=== PATIENT | female | born 1970 | race Caucasian/White ===

== ENCOUNTER → 2017-03-29 | Outpatient (CLI) | payer MEDICAID ==
[~2017-03-29] MED LIST: AMOXICILLIN AND1 TA2 PO; BACTRIM 400 MG-1 TAB PO; BACTRIM DS 8001 TA1 PO; CELEXA40 M1 PO; CIPRO 500MG TA500 MG PO; CIPRO500 MG PO; LORTAB 5/500 501 TAB OR; LORTAB 5/500 501 TAB PO; MEDROL 4MG. DOSE4 MG PO; NAPROXEN250 MG PO; PRILOSEC20 M1 PO; PYRIDIUM 200MG200 MG PO; ROBAXIN100 MG/ML PO; VICODIN 5/500 T1 TAB PO; VITAMIN D31000 IU PO; ZANTAC 150150 MG PO; ZITHROMAX Z PA250 MG PO
--- NOTE | 2017-03-30 12:50 | RADIOLOGY REPORT PS360 ---
US PELVIS-TRANSVAGINAL ONLY COMPARISON: None HISTORY: Dysfunctional uterine bleeding, heavy cycles history bilateral tubal ligation TECHNIQUE: Endovaginal scanning FINDINGS: The uterus is normal size and slightly retroverted. There is a somewhat coarsened heterogenic appearance to the uterine myometrium raising possibility of adenomyosis which could be a cause of dysfunctional uterine bleeding. The endometrial echo is normal. The right ovary is normal in size with normal appearance, left ovary is normal in size and shows a dominant and likely functional cyst measuring 2.5 x 1.7 cm. There is no cul-de-sac fluid. IMPRESSION: Somewhat heterogenic appearing uterine myometrium raising possibility of adenomyosis and suggest clinical correlation
== END ==
LOC: RAD 13:00
DX: R10.32 Left lower quadrant pain (principal)

== ENCOUNTER 2017-08-25 10:36 | Emergency (ER) | payer MEDICAID ==
[~2017-08-25] VITALS: Ht 175.3 cm; Wt 73.5 kg
--- OUTSIDE RECORDS SUMMARY | 2017-08-25 10:42 | External Medical Summary Rpt | CCD ---
Author Author , CONSTANCE NOLASCO Address Unknown Phone Care Team Providers Care Instructor Private Name Role Phone [facility] Unavailable Unavailable INC, [facility] Un[facility] KATHLEEN DONALD, ALBION DONALD Unavailable Unavailable [facility], Unavailable Unavailable [facility] Unavailable Unavailable [facility] April Young MD, Unavailable Unavailable April Young MD [facility] GIRMA CARRILLO, GIRMA Unavailable Unavailable [facility] Unavailable Unavailable [facility] SCIFRES, SCIFRES Unavailable Unavailable [facility], Unavailable Unavailable [facility] Unavailable [facility]available DEPT [facility], [facility] DE[facility] Purpose Continuity of Care Document - 04-17-2013 through 2016 Problems Code Diagnosis DOS Provider Status H6593 UNSPECIFIED 06-27-2017 [facility] PHYSICIANS NONSUPPRATI GROUP VE OTITIS MEDIA BILATERAL J209 ACUTE 06-27-2017 [facility] BRONCHITIS PHYSICIANS UNSPECIFIED GROUP N920 EXCESS & 05-28-2017 [facility] FREQUENT PHYSICIANS MENSTRUATIO GROUP N W/REGULAR CYCLE Z09 ENC F/U 05-28-2017 [facility] EXAM AFTR PHYSICIANS CMPL TX OTH GROUP THAN MALIG NEOPLSM N946 DYSMENORRHE 05-09-2017 [facility] UNSPECIFIED INC 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 04-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 PHYSICIANS ANEMIA SEC GROUP TO BLOOD LOSS CHRONIC N944 PRIMARY 04-16-2017 [facility] DYSMENORRHE PHYSICIANS A GROUP N938 OTHER SPEC 03-29-2017 [facility] VAGINAL BLEEDING R1032 LEFT LOWER 03-29-2017 [facility] PAIN INC N926 IRREGULAR 03-19-2017 [facility] MENSTRUATIO PHYSICIANS N GROUP UNSPECIFIED N951 MENOPAUSAL 03-19-2017 [facility]EM[facility] PHYSICIANS CLIMACTERIC GROUP STATES H524 PRESBYOPIA 02-28-2017 [facility] R635 ABNORMAL 12-03-2016 [facility] H6693 OTITIS 10-22-2016 [facility] UNSPECIFIED INC BILATERAL B9689 OTH SPEC 09-05-2016 [facility] AGNT CAUSE DZ CLASSIFIED ELSW R102 PELVIC AND 09-05-2016 [facility] PER[facility] PAIN [id number] ENCOUNTER 09-05-2016 [facility] GENERAL RTN W/O ABNORMAL FIND H6592 UNSPECIFIED 07-17-2016 [facility] PHYSICIANS NONSUPPURAT GROUP SHAYY OTITIS MEDIA LT EAR M795 RESIDUAL 07-17-2016 [facility] FOREIGN PHYSICIANS BODY IN GROUP SOFT TISSUE R232 FLUSHING 07-17-2016 [facility] J40 BRONCHITIS 02-15-2016 [facility] NOT PHYSICIANS SPECIFIED GROUP ACUTE OR CHRONIC K219 GASTRO-ESOP 01-31-2016 [facility] H REFLUX PHYSICIANS DISEASE GROUP WITHOUT ESOPHAGITIS R309 PAINFUL 01-31-2016 [facility] MICTURITION PHYSICIANS GROUP UNSPECIFIED H6690 OTITIS 07-12-2015 [facility] MEDIA PHYSICIANS UNSPECIFIED GROUP UNSPECIFIED EAR R591 GENERALIZED 07-12-2015 [facility] ENLARGED PHYSICIANS LYMPH NODES GROUP 3674 PRESBYOPIA 02-08-2015 KATHLEEN DONALD V2540 UNSPECIFIED 01-25-2015 [facility] CONTRACEPTI [facility] DEPT VE MACK SURVEILLANC E V2689 OTHER 01-25-2015 [facility] SPECIFIED DISTRICT PROCREATIVE [facility] DEPT MANAGEMENT MACK 8472 LUMBAR 10-19-2014 [facility] 33814 UNSPECIFIED 10-07-2014 [facility] PERFORATION OGY ASS[facility] OF TYMPANIC MEMBRANE 3829 UNSPECIFIED 09-07-2014 [facility] OTITIS MEDIA 3849 UNSPECIFIED 08-21-2014 [facility] DISORDER EAST OF TYMPANIC MEMBRANE 5990 URINARY 08-21-2014 [facility] TRACT EAST INFECTION SITE NOT SPECIFIED V145 PERSONAL 08-21-2014 [facility] HISTORY OF EAST ALLERGY TO NARCOTIC AGENT 496 496 CHR 04-18-2013 [place] [facility]AY [facility] N[facility] 530.81 530.81 04-18-2013 [place] ESOPHAGEAL [facility] REFLUX [facility] 599.0 599.0 URIN 04-18-2013 [facility] NOS 724.2 724.2 04-18-2013 [facility] Allergies, Adverse Reactions, Alerts Type Drug Allergy Adverse Reaction to Substance Substance Reaction Severity Codeine Unknown Unknown Medications Na ND Rx Da Fi Fi Am Da Di Ph RX Ph St me C No te ll ll ou ys ag ar # ys at rm s nt no ma ic us Or Da si cy ia de te s n re d CI 13 10 11 30 30 00 EA Ac TA 66 -1 -[address] ti LO 80 7- 7- 00 00 SI ve NE 01 20 20 50 DE AM 10 17 17 56 5 18 PH HB AR R MA 40 CY MG OF CY TA NT BL HI ET AN A IN C QU 16 10 11 30 30 00 EA Ac ET 71 -1 -[address] ti IA 40 7- 7- 00 00 SI ve PI 45 20 20 50 DE NE 30 17 17 56 1 19 PH FU AR MA MA RA CY TE OF 50 CY NT MG HI AN TA A B IN C CL 00 10 11 30 30 00 EA Ac ON 22 -1 -[address] ti ID 82 7- 7- 00 00 SI ve IN 12 20 20 50 DE E 85 17 17 56 HC 0 20 PH L AR 0. MA 2 CY MG OF TA CY BL NT ET HI AN A IN C OM 62 10 11 30 30 00 EA Ac EP 17 -1 -[address] ti RA 50 8- 7- 00 00 SI ve ZO 13 20 20 50 DE LE 64 17 [address] AR MA 40 CY MG OF CY CA NT PS HI UL AN E A IN C AZ 64 10 11 6. 5 00 EA Ac IT 67 -0 -[address] ti HR 90 5- 0- 0 00 SI ve OM 96 20 20 50 DE YC 10 17 17 43 IN 5 66 PH AR 25 MA 0 CY MG OF TA CY BL NT ET HI AN A IN C BE 67 10 11 6. 3 00 EA Ac NZ 87 -0 -[address] ti ON 70 5- 0- 0 00 SI ve AT 57 20 20 50 DE AT 30 17 17 43 E 5 67 PH 10 AR 0 MA MG CY CA OF PS CY UL NT E HI AN A IN C OM 62 09 10 30 30 00 EA Ac EP 17 -2 -[address] ti RA 50 1- 7- 00 00 SI ve ZO 13 20 20 50 DE LE 64 17 [address] AR MA 40 CY MG OF CY CA NT PS HI UL AN E A IN C CI 13 09 07 22 30 00 EA Ac TA 66 -1 -[address] ti LO 80 1- 3- 00 00 SI ve NE 01 20 20 49 DE AM 10 17 17 42 5 66 PH HB AR R MA 40 CY MG OF CY TA NT BL HI ET AN A IN C CL 00 09 07 22 30 00 EA Ac ON - -[address] ti ID 82 1- 3- 00 00 SI ve IN 12 20 20 49 DE E 85 17 17 42 HC 0 68 PH L AR 0. MA 2 CY MG OF TA CY BL NT ET HI AN A IN C QU 16 06 02 30 30 00 EA Ac ET 71 -1 -[address] ti IA 40 1- 3- 00 00 SI ve PI 45 20 20 49 DE NE 30 17 17 42 1 67 PH FU AR MA MA RA CY TE OF 50 CY NT MG HI AN TA A B IN C OM 62 08 06 22 30 00 EA Ac EP 17 -2 -[address] ti RA 50 2- 2- 00 00 SI ve ZO 13 20 20 49 DE LE 64 17 [address] AR MA 40 CY MG OF CY CA NT PS HI UL AN E A IN C HY 13 08 09 [address] 10 -2 -2 .0 00 IN ti OC 70 1- 2- 00 00 IC ve OD 02 20 20 43 ON 00 17 17 99 PH -A 5 73 AR CE MA TA CY MO NO PH 7. 5- 32 5 CL 00 08 30 30 00 EA Ac ON - -[address] ti ID 82 4- 5- 00 00 SI ve IN 12 20 20 49 DE E 85 17 17 42 HC 0 68 PH L AR 0. MA 2 CY MG OF TA CY BL NT ET HI AN A IN C QU 16 08 06 22 30 00 EA Ac ET 71 -1 -[address] ti IA 40 4- 5- 00 00 SI ve PI 45 20 20 49 DE NE 30 17 17 42 1 67 PH FU AR MA MA RA CY TE OF 50 CY NT MG HI AN TA A B IN C CI 13 08 30 30 00 EA Ac TA 66 -1 -[address] ti LO 80 4- 5- 00 00 SI ve NE 01 20 20 49 DE AM 10 17 17 42 5 66 PH HB AR R MA 40 CY MG OF CY TA NT BL HI ET AN A IN C OM 62 07 08 30 30 00 EA Ac EP 17 -2 -[address] ti RA 50 4- 5- 00 00 SI ve ZO 13 20 20 49 DE LE 64 17 [address] AR MA 40 CY MG OF CY CA NT PS HI UL AN E A IN C HY 13 07 08 6. [address] 10 -2 -2 00 00 IN ti OC 70 5- 5- 0 00 IC ve OD 02 20 20 43 ON 00 17 17 77 PH -A 5 48 AR CE MA TA CY MO NO PH 7. 5- 32 5 CL 00 07 08 30 30 00 EA Ac ON 22 -1 -[address] ti ID 82 2- 1- 00 00 SI ve IN 12 20 20 49 DE E 85 17 17 42 HC 0 68 PH L AR 0. MA 2 CY MG OF TA CY BL NT ET HI AN A IN C CI 13 07 08 30 30 00 EA Ac TA 66 -1 -[address] ti LO 80 2- 1- 00 00 SI ve NE 01 20 20 49 DE AM 10 17 17 42 5 66 PH HB AR R MA 40 CY MG OF CY TA NT BL HI ET AN A IN C QU 16 07 08 30 30 00 EA Ac ET 71 -1 -[address] ti IA 40 2- 1- 00 00 SI ve PI 45 20 20 49 DE NE 30 17 17 42 1 67 PH FU AR MA MA RA CY TE OF 50 CY NT MG HI AN TA A B IN C VE 00 07 08 18 18 00 EA Ac NT 17 -1 -[address] ti OL 30 2- 1- 00 00 SI ve IN 68 20 20 49 DE 22 17 17 42 HF 0 69 PH A AR 90 MA CY MC G OF IN CY [place] NT LE HI R AN A IN C OM 62 06 07 30 30 00 EA Ac EP 17 -2 -[address] ti RA 50 6- 8- 00 00 SI ve ZO 13 20 20 49 DE LE 64 17 [address] AR MA 40 CY MG OF CY CA NT PS HI UL AN E A IN C CI 13 06 07 30 30 00 EA Ac TA 66 -1 -[address] ti LO 80 4- 4- 00 00 SI ve NE 01 20 20 47 DE AM 10 17 17 95 5 48 PH HB AR R MA 40 CY MG OF CY TA NT BL HI ET AN A IN C QU 16 02 27 30 30 00 EA Ac ET 71 -1 -[address] ti IA 40 4- 4- 00 00 SI ve PI 45 20 20 47 DE NE 30 17 17 95 1 49 PH FU AR MA MA RA CY TE OF 50 CY NT MG HI AN TA A B IN C CL 00 02 27 30 30 00 EA Ac ON 22 -1 -[address] ti ID 82 4- 4- 00 00 SI ve IN 12 20 20 49 DE E 85 17 17 13 HC 0 19 PH L AR 0. MA 2 CY MG OF TA CY BL NT ET HI AN A IN C OM 62 05 03 22 30 00 EA Ac EP 17 -3 -[address] ti RA 50 0- 0- 00 00 SI ve ZO 13 20 20 48 DE LE 64 17 [address] AR MA 40 CY MG OF CY CA NT PS HI UL AN E A IN C AM 16 05 06 20 10 00 EA Ac OX 71 -1 -[address] ti IC 40 1- 6- 00 00 SI ve IL 29 20 20 48 DE LI 90 17 17 71 N 4 78 PH 50 AR 0 MA MG CY CA OF PS CY UL NT E HI AN A IN C QU 16 01 26 30 30 00 EA Ac ET 71 -1 -[address] ti IA 40 5- 6- 00 00 SI ve PI 45 20 20 47 DE NE 30 17 17 95 1 49 PH FU AR MA MA RA CY TE OF 50 CY NT MG HI AN TA A B IN C CI 13 01 26 30 30 00 EA Ac TA 66 -1 -[address] ti LO 80 5- 6- 00 00 SI ve NE 01 20 20 47 DE AM 10 17 17 95 5 48 PH HB AR R MA 40 CY MG OF CY TA NT BL HI ET AN A IN C CL 00 01 26 30 30 00 EA Ac ON 22 -1 -[address] ti ID 82 5- 6- 00 00 SI ve IN 12 20 20 47 DE E 85 17 17 95 HC 0 50 PH L AR 0. MA 2 CY MG OF TA CY BL NT ET HI AN A IN C OM 62 05 03 22 30 00 EA Ac EP 17 -0 -[address] ti RA 50 1- 2- 00 00 SI ve ZO 13 20 20 48 DE LE 64 17 [address] AR MA 40 CY MG OF CY CA NT PS HI UL AN E A IN C CI 13 04 05 30 30 00 EA Ac TA 66 -0 -[address] ti LO 80 9- 2- 00 00 SI ve NE 01 20 20 47 DE AM 10 17 17 95 5 48 PH HB AR R MA 40 CY MG OF CY TA NT BL HI ET AN A IN C CL 00 04 05 30 30 00 EA Ac ON -[address] ti ID 82 0- 2- 00 00 SI ve IN 12 20 20 47 DE E 85 17 17 95 HC 0 50 PH L AR 0. MA 2 CY MG OF TA CY BL NT ET HI AN A IN C QU 16 04 05 30 30 00 EA Ac ET 71 -1 -[address] ti IA 40 0- 2- 00 SI ve PI 45 20 20 47 DE NE 30 17 17 95 1 49 PH FU AR MA MA RA CY TE OF 50 CY NT MG HI AN TA A B IN C OM 62 03 05 30 30 00 EA Ac EP 17 -3 -[address] ti RA 50 1- 5- 00 00 SI ve ZO 13 20 20 48 DE LE 64 17 [address] AR MA 40 CY MG OF CY CA NT PS HI UL AN E A IN C CI 13 03 04 30 30 00 EA Ac TA 66 -0 -[address] ti LO 80 9- 4- 00 00 SI ve NE 01 20 20 47 DE AM 10 17 17 90 5 38 PH HB AR R MA 40 CY MG OF CY TA NT BL HI ET AN A IN C QU 16 03 04 30 30 00 EA Ac ET 71 -0 -[address] ti IA 40 9- 4- 00 SI ve PI 45 20 20 47 DE NE 30 17 17 90 1 39 PH FU AR MA MA RA CY TE OF 50 CY NT MG HI AN TA A B IN C CE 00 03 04 20 10 00 EA Ac FD 09 - -[address] ti IN 33 3- 4- 00 00 SI ve IR 16 20 20 47 DE 00 17 17 95 30 6 51 PH 0 AR MG MA CY CA PS OF UL CY E NT HI AN A IN C CL 00 03 04 30 30 00 EA Ac ON -[address] ti ID 82 3- 4- 00 00 SI ve IN 12 20 20 47 DE E 85 17 17 95 HC 0 50 PH L AR 0. MA 2 CY MG OF TA CY BL NT ET HI AN A IN C OM 62 02 03 30 30 00 EA Ac EP 17 -2 -[address] ti RA 50 7- 1- 00 00 SI ve ZO 13 20 20 47 DE LE 64 17 [address] AR MA 40 CY MG OF CY CA NT PS HI UL AN E A IN C CL 00 02 03 30 30 00 EA Ac ON 22 -2 -[address] ti ID 82 5- 1- 00 00 SI ve IN 12 20 20 47 DE E 75 17 17 36 HC 0 27 PH L AR 0. MA 1 CY MG OF TA CY BL NT ET HI AN A IN C CI 13 02 03 30 30 00 EA Ac TA 66 -0 -[address] ti LO 80 6- 0- 00 00 SI ve NE 01 20 20 46 DE AM 10 17 17 80 5 32 PH HB AR R MA 40 CY MG OF CY TA NT BL HI ET AN A IN C QU 16 02 03 30 30 00 EA Ac ET 71 -0 -[address] ti IA 40 6- 0- 00 00 SI ve PI 45 20 20 46 DE NE 30 17 17 80 1 33 PH FU AR MA MA RA CY TE OF 50 CY NT MG HI AN TA A B IN C AM 16 01 03 14 7 00 EA Ac OX 71 -3 -[address] ti -C 40 0- 3- 00 00 SI ve LA 29 20 20 47 DE V 70 17 17 43 87 1 16 PH 5- AR 12 MA 5 CY MG OF TA CY BL NT ET HI AN A IN C NA 53 01 03 6. 3 00 EA Ac NE 74 -3 -[address] ti OX 60 0- 3- 0 00 SI ve EN 18 20 20 47 DE 80 17 17 43 25 1 17 PH 0 AR MG MA CY TA BL OF ET CY NT HI AN A IN C OM 62 01 02 30 30 00 EA Ac EP 17 -2 -[address] ti RA 50 5- 4- 00 00 SI ve ZO 13 20 20 47 DE LE 64 17 [address] AR MA 40 CY MG OF CY CA NT PS HI UL AN E A IN C CL 00 01 02 30 30 00 EA Ac ON 22 -2 -[address] ti ID 82 4- 4- 00 00 SI ve IN 12 20 20 47 DE E 75 17 17 36 HC 0 27 PH L AR 0. MA 1 CY MG OF TA CY BL NT ET HI AN A IN C QU 16 01 30 30 00 EA Ac ET 71 -0 -[address] ti IA 40 6- 0- 00 00 SI ve PI 45 20 20 46 DE NE 30 17 17 80 1 33 PH FU AR MA MA RA CY TE OF 50 CY NT MG HI AN TA A B IN C CI 13 09 24 29 30 00 EA Ac TA 66 -0 -[address] ti LO 80 6- 0- 00 00 SI ve NE 01 20 20 46 DE AM 10 17 17 80 5 32 PH HB AR R MA 40 CY MG OF CY TA NT BL HI ET AN A IN C CL 00 12 10 22 30 00 EA Ac ON 60 -2 -[address] ti ID 32 2- 7- 00 00 SI ve IN 95 20 20 46 DE E 72 16 17 29 HC 8 16 PH L AR 0. MA 1 CY MG OF TA CY BL NT ET HI AN A IN C OM 62 12 10 22 30 00 EA Ac EP 17 -2 -[address] ti RA 50 7- 7- 00 00 SI ve ZO 13 20 20 47 DE LE 64 16 17 [address] AR MA 40 CY MG OF CY CA NT PS HI UL AN E A IN C ME 68 12 01 70 5 00 EA Ac TR 68 -2 -[address] ti ON 20 1- 0- 00 SI ve ID 45 20 20 46 DE AZ 57 16 17 98 OL 0 08 PH E AR VA MA GI CY NA L OF 0. CY 75 NT % HI GL AN A IN C BU 10 12 30 30 00 EA Ac NE 37 -1 -[address] ti OP 00 4- 3- 00 00 SI ve IO 10 20 20 46 DE N 10 16 17 88 HC 3 13 PH L AR XL MA CY 15 0 OF MG CY NT TA HI BL AN ET A IN C HM 62 12 28 28 00 EA Ac 01 -1 -[address] ti NI 10 4- 3- 00 00 SI ve CO 17 20 20 46 DE TI 30 16 17 88 NE 1 12 PH AR 21 MA CY MG /2 OF 4H CY R NT PA HI TC AN H A IN C CI 13 12 10 22 30 00 EA Ac TA 66 -0 -[address] ti LO 80 7- 9- 00 00 SI ve NE 01 20 20 46 DE AM 10 16 17 80 5 32 PH HB AR R MA 40 CY MG OF CY TA NT BL HI ET AN A IN C QU 16 12 01 30 30 00 EA Ac ET 71 -0 -[address] ti IA 40 7- 9- 00 00 SI ve PI 45 20 20 46 DE NE 30 16 17 80 1 33 PH FU AR MA MA RA CY TE OF 50 CY NT MG HI AN TA A B IN C HANNAH 51 07 0 No LF 07 -2 AM 90 7- Lo ET 12 20 ng HO 82 13 er XA 0 ZO Ac LE ti -T ve MP DS TA BL ET Vital Signs 04-18-2013 00:31 Name Value Interpretat Reference Comment ion Range BP 69 mm[Hg] Diastolic BP Systolic 115 mm[Hg] Heart 95 /min Rate/Pulse O2% 96 % Respiratory 20 /min Rate Results Labs Lab Lab Date Result Refere Interp Status Commen Order Detail nces retati t Range on URINALYSIS/COMPLETE (04-18-2013 00:03) URINE 04-18-2 YELLOW YELLOW complet COLOR 013 ed 00:03 URINE 04-18-2 CLOUDY CLEAR complet APPEARA 013 ed NCE 00:03 URINE 04-18-2 NEGATIV NEG complet GLUCOSE 013 E ed - 00:03 DIPSTIC K URINE 04-18-2 NEGATIV NEG complet BILIRUB 013 E ed IN - 00:03 DIPSTIC K URINE 04-18-2 NEGATIV NEG complet KETONE 013 E mg/dL ed 00:03 URINE 04-18-2 Greater 1.005-1 complet SPECIFI 013 than .030 ed C 00:03 or GRAVITY equal to 1.030 URINE 04-18-2 2+ NEG complet BLOOD 013 ed 00:03 URINE 04-18-2 6.0 UNK 5.0-8.5 complet PH 013 ed 00:03 URINE 04-18-2 TRACE NEG complet PROTEIN 013 mg/dL ed - 00:03 DIPSTIC K URINE 04-18-2 0.2 NEG complet UROBILI 013 E.U./dL ed NOGEN - 00:03 DIPSTIC K URINE 04-18-2 NEGATIV NEG complet NITRATE 013 E ed - 00:03 DIPSTIC K URINE 04-18-2 2+ NEG complet LEUK 013 ed ESTERAS 00:03 E URINE 50-100 0 complet RBC 013 rbc/hpf ed 00:03 URINE TNTC O complet WBC 013 wbc/hpf ed 00:03 Encounters Encounter Start End Date Code Location Performer Type Date [facility] PILAR - 7 7 [facility] PILAR - 7 7 [facility] PIL[facility] - 7 7 [facility] - 7 7 [facility] - 7 7 [facility] - 7 7 [facility] - 6 6 [facility] - 6 6 [facility] - 5 5 [facility] [place] - 4 4 [facility] - 4 4 [facility] Emergency SHERRI Young MD (ER) 3 23:55 3 00:32 [facility]
--- OUTSIDE RECORDS SUMMARY | 2017-08-25 10:42 | External Medical Summary Rpt | CCD ---
Author Author , CONSTANCE NOLASCO Address Unknown Phone [email or web address] Care Team Providers Care Sheet Metal Former Name Role Phone [facility] Unavailable Unavailable INC, [facility] Unavailable Unavailable [facility]OSPITAL P, [facility] KATHLEEN DONALD, OCALA DONALD Unavailable Unavailable [facility], Unavailable Unavailable [facility] Unavailable Unavailable [facility], [facility] April Young MD, Unavailable Unavailable April Young MD [facility] GIRMA CARRILLO, GIRMA Unavailable Unavailable [facility] Unavailable Unavailable [facility] SCIFRES, SCIFRES Unavailable Unavailable [facility], Unavailable Unavailable [facility] Unavailable Unavailable DEPT [facility] DE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 N944 PRIMARY 04-16-2017 [facility] DYSMENORRHE PHYSICIANS A GROUP N938 OTHER SPEC 03-29-2017 [facility] VAGINAL BLEEDING R1032 LEFT LOWER 03-29-2017 [facility] PAIN INC N926 IRREGULAR 03-19-2017 [facility] MENSTRUATIO PHYSICIANS N GROUP UNSPECIFIED N951 MENOPAUSAL 03-19-2017 [facility] CLIMACTERIC GROUP STATES H524 PRESBYOPIA 02-28-2017 [facility] R635 ABNORMAL 12-03-2016 [facility] H6693 OTITIS 10-22-2016 [facility] UNSPECIFIED INC BILATERAL B9689 OTH SPEC 09-05-2016 [facility] AGNT CAUSE DZ CLASSIFIED ELSW R102 PELVIC AND 09-05-2016 [facility] PER[facility] PAIN [id number] ENCOUNTER 09-05-2016 [facility] 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 LLC GENERAL RTN W/O ABNORMAL FIND H6592 UNSPECIFIED 07-17-2016 [facility] NONSUPPURAT GROUP SHAYY OTITIS MEDIA LT EAR M795 RESIDUAL 07-17-2016 [facility] FOREIGN PHYSICIANS BODY IN GROUP SOFT TISSUE R232 FLUSHING 07-17-2016 [facility] J40 BRONCHITIS 02-15-2016 [facility] NOT PHYSICIANS SPECIFIED GROUP ACUTE OR CHRONIC K219 GASTRO-ESOP 01-31-2016 [facility] H REFLUX PHYSICIANS DISEASE GROUP WITHOUT ESOPHAGITIS R309 PAINFUL 01-31-2016 [facility] MICTURITION PHYSICIANS GROUP UNSPECIFIED H6690 OTITIS 07-12-2015 [facility] MEDIA PHYSICIANS UNSPECIFIED GROUP UNSPECIFIED EAR R591 GENERALIZED 07-12-2015 [facility] ENLARGED PHYSICIANS LYMPH NODES GROUP 3674 PRESBYOPIA 02-08-2015 KATHLEEN DONALD V2540 UNSPECIFIED 01-25-2015 [facility] CONTRACEPTI [facility] DEPT VE MACK SURVEILLANC E V2689 OTHER 01-25-2015 [facility] SPECIFIED DISTRICT PROCREATIVE [facility] DEPT MANAGEMENT MACK 8472 LUMBAR 10-19-2014 [facility] P 95100 UNSPECIFIED 10-07-2014 [facility] ANESTHESIOL PERFORATION OGY ASSO OF TYMPANIC MEMBRANE 3829 UNSPECIFIED 09-07-2014 [facility] OTITIS MEDIA 3849 UNSPECIFIED 08-21-2014 [facility] DISORDER EAST OF TYMPANIC MEMBRANE 5990 URINARY 08-21-2014 [facility] TRACT EAST INFECTION SITE NOT SPECIFIED V145 PERSONAL 08-21-2014 [facility] HISTORY OF EAST ALLERGY TO NARCOTIC AGENT 496 496 CHR 04-18-2013 [place] [facility] N[facility] 530.81 530.81 04-18-2013 [place] ESOPHAGEAL [facility] REFLUX [facility] 599.0 599.0 URIN 04-18-2013 [facility] NOS 724.2 724.2 04-18-2013 [facility] Allergies, Adverse Reactions, Alerts Type Drug Allergy [...] 80 7- 7- 00 00 SI ve AR 01 20 20 50 DE AM 10 [...] 80 1- 3- 00 00 SI ve AR 01 20 20 49 DE AM 10 [...] 5 73 AR CE MA TA CY IL NO PH 7. 5- 32 5 CL [...] 80 4- 5- 00 00 SI ve AR 01 20 20 49 DE AM 10 [...] 5 48 AR CE MA TA CY [place] NO PH 7. 5- 32 5 CL [...] 80 2- 1- 00 00 SI ve AR 01 20 20 49 DE AM 10 [...] 80 4- 4- 00 00 SI ve AR 01 20 20 47 DE AM 10 [...] 80 5- 6- 00 00 SI ve AR 01 20 20 47 DE AM 10 [...] 80 9- 2- 00 00 SI ve AR 01 20 20 47 DE AM 10 [...] 80 9- 4- 00 00 SI ve AR 01 20 20 47 DE AM 10 [...] 80 6- 0- 00 00 SI ve AR 01 20 20 46 DE AM 10 [...] 01 03 6. 3 00 EA Ac AR 74 -3 -[address] ti [...] 80 6- 0- 00 00 SI ve AR 01 20 20 46 DE AM 10 [...] 10 12 30 30 00 EA Ac AR 37 -1 -[address] ti [...] 80 7- 9- 00 00 SI ve AR 01 20 20 46 DE AM 10 [...] End Date Code Location Performer Type Date [facility] P[facility] - 7 7 [facility] - 7 7 [facility] - 7 7 [facility] - 7 7 [facility] - 7 7 [facility] - 7 7 [facility] - 6 6 [facility] - 6 6 [facility] - 5 5 [facility] - 4 4 [facility] - 4 4 [facility] Emergency SHERRI Young MD (ER) 3 23:55 3 00:32 [facility]
--- OUTSIDE RECORDS SUMMARY | 2017-08-25 10:44 | External Medical Summary Rpt | CCD ---
Author Author , CONSTANCE NOLASCO Address Unknown Phone [email or web address] Care Team Providers Care Biofuels Engineering Manager Name Role Phone [facility] Unavailable Unavailable INC, [facility] Unavailable Unavailable HOSPITAL P, [facility] P KATHLEEN DONALD, KATHLEEN DONALD Unavailable Unavailable [facility], Unavailable Unavailable [facility] Un[facility] GIRMA LAROSE Unavailable Unavailable [facility] Unavailable Unavailable [facility] SCIFRES, SCIFRES Unavailable Unavailable [facility], Unavailable Unavailable [facility] Unavailable Unavailable DEPT [facility] Purpose Continuity of Care Document - 08-21-2014 through 2016 Problems Code Diagnosis DOS Provider Status H6593 UNSPECIFIED 06-27-2017 [facility] PHYSICIANS NONSUPPRATI GROUP VE OTITIS MEDIA BILATERAL J209 ACUTE 06-27-2017 [facility] BRONCHITIS PHYSICIANS UNSPECIFIED GROUP N920 EXCESS & 05-28-2017 [facility] FREQUENT PHYSICIANS MENSTRUATIO GROUP N W/REGULAR CYCLE Z09 ENC F/U 05-28-2017 [facility] EXAM AFTR PHYSICIANS CMPL TX OTH GROUP THAN MALIG NEOPLSM N946 DYSMENORRHE 05-09-2017 [facility] UNSPECIFIED INC 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 N944 PRIMARY 04-16-2017 [facility] DYSMENORRHE PHYSICIANS A GROUP N938 OTHER SPEC 03-29-2017 [facility] VAGINAL BLEEDING R1032 LEFT LOWER 03-29-2017 [facility] PAIN INC N926 IRREGULAR 03-19-2017 [facility] MENSTRUATIO PHYSICIANS N GROUP UNSPECIFIED N951 MENOPAUSAL 03-19-2017 [facility] CLIMACTERIC GROUP STATES H524 PRESBYOPIA 02-28-2017 [facility] R635 ABNORMAL 12-03-2016 [facility] H6693 OTITIS 10-22-2016 [facility] UNSPECIFIED INC BILATERAL B9689 OTH SPEC 09-05-2016 [facility] BACTERIAL [facility] AGNT CAUSE DZ CLASSIFIED ELSW R102 PELVIC AND 09-05-2016 [facility], PERINEAL LLC PAIN 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[facility] LLC GENERAL RTN W/O ABNORMAL FIND H6592 UNSPECIFIED 07-17-2016 [facility] PHYSICIANS NONSUPPURAT GROUP SHAYY OTITIS MEDIA LT EAR M795 RESIDUAL 07-17-2016 [facility] FOREIGN PHYSICIANS BODY IN GROUP SOFT TISSUE R232 FLUSHING 07-17-2016 [facility] J40 BRONCHITIS 02-15-2016 [facility] NOT PHYSICIANS SPECIFIED GROUP ACUTE OR CHRONIC K219 GASTRO-ESOP 01-31-2016 [facility] REFLUX PHYSICIANS DISEASE GROUP WITHOUT ESOPHAGITIS R309 PAINFUL 01-31-2016 [facility] MICTURITION PHYSICIANS GROUP UNSPECIFIED H6690 OTITIS 07-12-2015 [facility] MEDIA PHYSICIANS UNSPECIFIED GROUP UNSPECIFIED EAR R591 GENERALIZED 07-12-2015 [facility] ENLARGED PHYSICIANS LYMPH NODES GROUP 3674 PRESBYOPIA 02-08-2015 KATHLEEN DONALD V2540 UNSPECIFIED 01-25-2015 [facility] DEPT VE MACK SURVEILLANC E V2689 OTHER 01-25-2015 [facility] PROCREATIVE [facility] DEPT MANAGEMENT MACK 8472 LUMBAR 10-19-2014 [facility] P 33939 UNSPECIFIED 10-07-2014 [facility] ANESTHESIOL PERFORATION [facility] TYMPANIC MEMBRANE 3829 UNSPECIFIED 09-07-2014 P[facility]LL [facility]NA OTITIS MEDIA 3849 UNSPECIFIED 08-21-2014 [facility] DISORDER EAST OF TYMPANIC MEMBRANE 5990 URINARY 08-21-2014 [facility] TRACT EAST INFECTION SITE NOT SPECIFIED V145 PERSONAL 08-21-2014 [facility] HISTORY OF EAST ALLERGY TO NARCOTIC AGENT Medications Na ND Rx Da Fi Fi Am Da Di Ph RX Ph St me C No te ll ll ou ys ag ar # ys at rm s nt no ma ic us Or Da si cy ia de te s n re d CL 00 10 11 30 30 00 EA Ac ON .0 00 ST ti ID 82 7- [...] AN E A IN C CI 13 10 11 30 30 00 EA Ac TA 66 -1 -[address] ti LO 80 7- 7- 00 00 SI ve SD 01 20 20 50 DE AM 10 [...] HI AN TA A B IN C AZ 64 10 11 6. [...] E A IN C CI 13 09 10 30 30 00 EA Ac TA 66 -1 -[address] ti LO 80 1- 3- 00 00 SI ve SD 01 20 20 49 DE AM 10 17 17 42 5 66 PH HB AR R MA 40 CY MG OF CY TA NT BL HI ET AN A IN C CL 00 09 10 30 30 00 EA Ac ON 22 -1 -[address] ti ID 82 1- 3- 00 00 SI ve IN 12 20 20 49 DE E 85 17 17 42 HC 0 68 PH L AR 0. MA 2 CY MG OF TA CY BL NT ET HI AN A IN C QU 16 09 10 30 30 00 EA Ac ET 71 -1 -[address] ti IA 40 1- 3- 00 00 SI ve PI 45 20 20 49 DE NE 30 17 17 42 1 67 PH FU AR MA MA RA CY TE OF 50 CY NT MG HI AN TA A B IN C OM 62 08 09 30 30 00 EA Ac EP 17 [...] 5 73 AR CE MA TA CY PA NO PH 7. 5- 32 5 QU 16 08 09 30 30 00 EA Ac ET 71 -1 -[address] ti IA 40 4- 5- 00 00 SI ve PI 45 20 20 49 DE NE 30 17 17 42 1 67 PH FU AR MA MA RA CY TE OF 50 CY NT MG HI AN TA A B IN C CI 13 08 09 30 30 00 EA Ac TA 66 -1 -[address] ti LO 80 4- 5- 00 00 SI ve SD 01 20 20 49 DE AM 10 17 17 42 5 66 PH HB AR R MA 40 CY MG OF CY TA NT BL HI ET AN A IN C CL 00 08 09 30 30 00 EA Ac ON 22 -1 -[address] ti ID 82 4- 5- 00 00 SI ve IN 12 20 20 49 DE E 85 17 17 42 HC 0 68 PH L AR 0. MA 2 CY MG OF TA CY BL NT ET HI AN A IN C OM 62 07 [...] 5 48 AR CE MA TA CY PA NO PH 7. 5- 32 5 CL [...] HI AN A IN C CI 13 03 30 30 30 00 EA Ac TA 66 -1 -[address] ti LO 80 2- 1- 00 00 SI ve SD 01 20 20 49 DE AM 10 17 17 42 5 66 PH HB AR R MA 40 CY MG OF CY TA NT BL HI ET AN A IN C QU 16 07 30 30 00 EA Ac ET 71 [...] AN E A IN C CI 13 02 27 30 30 00 EA Ac TA 66 -1 -[address] ti LO 80 4- 4- 00 00 SI ve SD 01 20 20 47 DE AM 10 [...] TA A B IN C CL 00 06 07 30 30 00 EA Ac ON 22 -1 -[address] ti ID 82 4- 4- 00 00 SI ve IN 12 20 20 49 DE E 85 17 17 13 HC 0 19 PH L AR 0. MA 2 CY MG OF TA CY BL NT ET HI AN A IN C OM 62 05 06 30 30 00 EA Ac EP 17 [...] HI AN A IN C QU 16 05 30 30 00 EA Ac ET 71 -1 -[address] ti IA 40 5- 6- 00 00 SI ve PI 45 20 20 47 DE NE 30 17 17 95 1 49 PH FU AR MA MA RA CY TE OF 50 CY NT MG HI AN TA A B IN C CI 13 05 30 30 00 EA Ac TA 66 -1 -[address] ti LO 80 5- 6- 00 00 SI ve SD 01 20 20 47 DE AM 10 17 17 95 5 48 PH HB AR R MA 40 CY MG OF CY TA NT BL HI ET AN A IN C CL 00 05 30 30 00 EA Ac ON 22 -1 -[address] ti ID 82 5- 6- 00 00 SI ve IN 12 20 20 47 DE E 85 17 17 95 HC 0 50 PH L AR 0. MA 2 CY MG OF TA CY BL NT ET HI AN A IN C OM 62 05 30 30 00 EA Ac EP 17 -0 -[address] ti RA 50 1- 2- 00 00 SI ve ZO 13 20 20 48 DE LE 64 17 [address] AR MA 40 CY MG OF CY CA NT PS HI UL AN E A IN C CI 13 04 30 30 00 EA Ac TA 66 -0 -[address] ti LO 80 9- 2- 00 00 SI ve SD 01 20 20 47 DE AM 10 17 17 95 5 48 PH HB AR R MA 40 CY MG OF CY TA NT BL HI ET AN A IN C CL 00 04 05 30 30 00 EA Ac ON 22 [...] ST ti IA 40 0- 2- 00 00 SI ve PI 45 20 [...] 80 9- 4- 00 00 SI ve SD 01 20 20 47 DE AM 10 17 17 90 5 38 PH HB AR R MA 40 CY MG OF CY TA NT BL HI ET AN A IN C QU 16 03 04 30 30 00 EA Ac ET 71 -0 -[address] ti IA 40 9- 4- 00 00 SI ve PI 45 20 20 47 DE NE 30 17 17 90 1 39 PH FU AR MA MA RA CY TE OF 50 CY NT MG HI AN TA A B IN C CE 00 03 04 20 10 00 EA Ac FD 09 -1 -[address] ti IN 33 3- 4- 00 00 SI ve IR 16 20 20 47 DE 00 17 17 95 30 6 51 PH 0 AR MG MA CY CA PS OF UL CY E NT HI AN A IN C CL 00 03 04 30 30 00 EA Ac ON 22 [...] 80 6- 0- 00 00 SI ve SD 01 20 20 46 DE AM 10 [...] HI AN TA A B IN C NA 53 01 03 6. 3 00 EA Ac SD 74 -3 -[address] ti OX 60 0- 3- 0 00 SI ve EN 18 20 20 47 DE 80 17 17 43 25 1 17 PH 0 AR MG MA CY TA BL OF ET CY NT HI AN A IN C AM 16 01 03 14 [...] AN A IN C QU 16 01 02 30 30 00 EA Ac ET 71 -0 -[address] ti IA 40 6- 0- 00 00 SI ve PI 45 20 20 46 DE NE 30 17 17 80 1 33 PH FU AR MA MA RA CY TE OF 50 CY NT MG HI AN TA A B IN C CI 13 01 02 30 30 00 EA Ac TA 66 -0 -[address] ti LO 80 6- 0- 00 00 SI ve SD 01 20 20 46 DE AM 10 17 17 80 5 32 PH HB AR R MA 40 CY MG OF CY TA NT BL HI ET AN A IN C CL 00 12 01 30 30 00 EA Ac ON 60 -2 -[address] ti ID 32 2- 7- 00 00 SI ve IN 95 20 20 46 DE E 72 16 17 29 HC 8 16 PH L AR 0. MA 1 CY MG OF TA CY BL NT ET HI AN A IN C OM 62 12 01 30 30 00 EA Ac EP 17 [...] ST ti ON 20 1- 0- 00 00 SI ve ID 45 20 20 46 DE AZ 57 16 17 98 OL 0 08 PH E AR VA MA GI CY NA L OF 0. CY 75 NT % HI GL AN A IN C BU 10 12 30 30 00 EA Ac SD 37 -1 -[address] ti OP 00 4- 3- 00 00 SI ve IO 10 20 20 46 DE N 10 16 17 88 HC 3 13 PH L AR XL MA CY 15 0 OF MG CY NT TA HI BL AN ET A IN C HM 62 12 01 28 28 00 EA Ac 01 -1 -[address] ti NI 10 4- 3- 00 00 SI ve CO 17 20 20 46 DE TI 30 16 17 88 NE 1 12 PH AR 21 MA CY MG /2 OF 4H CY R NT PA HI TC AN H A IN C CI 13 12 30 30 00 EA Ac TA 66 -0 -[address] ti LO 80 7- 9- 00 00 SI ve SD 01 20 20 46 DE AM 10 [...] HI AN TA A B IN C Encounters Encounter Start End Date Code Location Performer Type Date [facility] 7 [facility] P[facility] - 7 7 [facility] P[facility] - 7 7 [facility] P[facility] - 7 7 [facility] P[facility] - 7 7 [facility] PILAR - 6 6 [facility] P[facility]AR [facility] 6 6 [facility] - 5 5 [facility] [place] - 4 4 [facility] [place] [address] 4 [facility]
--- OUTSIDE RECORDS SUMMARY | 2017-08-25 10:44 | External Medical Summary Rpt | CCD ---
Author Author , CONSTANCE NOLASCO Address Unknown Phone [email or web address] Care Team Providers Care Change Number Operator Name Role Phone [facility] Unavailable Unavailable INC, [facility] Unavailable [facility]available [facility]PITAL P, [facility] KATHLEEN DONALD, KATHLEEN DONALD Unavailable Unavailable [facility], Unavailable Unavailable [facility] Unavailable Unavailable [facility] GIRMA LAROSE Unavailable Unavailable [facility] Unavailable Unavailable [facility] SCIFRES, SCIFRES Unavailable Unavailable [facility], Unavailable Unavailable [facility] Unavailable Unavailable DEPT [facility] Purpose Continuity of Care Document - 08-21-2014 through 2016 Problems Code Diagnosis DOS Provider Status H6593 UNSPECIFIED 06-27-2017 [facility] PHYSICIANS NONSUPPRATI GROUP VE OTITIS MEDIA BILATERAL J209 ACUTE 06-27-2017 [facility] BRONCHITIS PHYSICIANS UNSPECIFIED GROUP N920 EXCESS & 05-28-2017 [facility] FREQUENT PHYSICIANS MENSTRUATIO GROUP N W/REGULAR CYCLE Z09 ENC F/U 05-28-2017 [facility] EXAM AFTR PHYSICIANS CMPL [place] OTH GROUP THAN MALIG NEOPLSM N946 DYSMENORRHE 05-09-2017 [facility] UNSPECIFIED INC 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 CHRONIC N944 PRIMARY 04-16-2017 [facility] DYSMENORRHE PHYSICIANS A GROUP N938 OTHER SPEC 03-29-2017 [facility] VAGINAL BLEEDING R1032 LEFT LOWER 03-29-2017 [facility] PAIN INC N926 IRREGULAR 03-19-2017 [facility] MENSTRUATIO PHYSICIANS N GROUP UNSPECIFIED N951 MENOPAUSAL 03-19-2017 [facility] CLIMACTERIC GROUP STATES H524 PRESBYOPIA 02-28-2017 [facility] R635 ABNORMAL 12-03-2016 [facility] H6693 OTITIS 10-22-2016 [facility] UNSPECIFIED INC BILATERAL B9689 OTH SPEC 09-05-2016 [facility] AGNT CAUSE DZ CLASSIFIED ELSW R102 PELVIC AND 09-05-2016 [facility] PAIN 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 [facility] GENERAL RTN W/O ABNORMAL FIND H6592 UNSPECIFIED 07-17-2016 [facility] PHYSICIANS NONSUPPURAT GROUP SHAYY OTITIS MEDIA LT EAR M795 RESIDUAL 07-17-2016 [facility] FOREIGN PHYSICIANS BODY IN GROUP SOFT TISSUE R232 FLUSHING 07-17-2016 [facility] PHYSICIANS GROUP J40 BRONCHITIS 02-15-2016 [facility] NOT PHYSICIANS SPECIFIED GROUP ACUTE OR CHRONIC K219 GASTRO-ESOP 01-31-2016 [facility] REFLUX PHYSICIANS DISEASE GROUP WITHOUT ESOPHAGITIS R309 PAINFUL 01-31-2016 [facility] MICTURITION PHYSICIANS GROUP UNSPECIFIED H6690 OTITIS 07-12-2015 [facility] MEDIA PHYSICIANS UNSPECIFIED GROUP UNSPECIFIED EAR R591 GENERALIZED 07-12-2015 [facility] ENLARGED PHYSICIANS LYMPH NODES GROUP 3674 PRESBYOPIA 02-08-2015 KATHLEEN DONALD V2540 UNSPECIFIED 01-25-2015 [facility] DEPT VE MACK SURVEILLANC E V2689 OTHER 01-25-2015 [facility] PROCREATIVE [facility] DEPT MANAGEMENT MACK 8472 LUMBAR 10-19-2014 [facility] P [address]86 UNSPECIFIED 10-07-2014 [facility] ANESTHESIOL PERFORATION [facility]GY [facility] TYMPANIC MEMBRANE 3829 UNSPECIFIED 09-07-2014 PARELL LORENA OTITIS MEDIA 3849 UNSPECIFIED 08-21-2014 [facility] DISORDER EAST OF TYMPANIC MEMBRANE 5990 URINARY 08-21-2014 [facility] TRACT EAST INFECTION SITE NOT SPECIFIED V145 PERSONAL 08-21-2014 [facility] HISTORY OF EAST ALLERGY TO NARCOTIC AGENT [...] 80 7- 7- 00 00 SI ve FL 01 20 20 50 DE AM 10 [...] 80 1- 3- 00 00 SI ve FL 01 20 20 49 DE AM 10 [...] 5 73 AR CE MA TA CY CO NO PH 7. 5- 32 5 QU [...] 80 4- 5- 00 00 SI ve FL 01 20 20 49 DE AM 10 [...] 5 48 AR CE MA TA CY CO NO PH 7. 5- 32 5 CL [...] 80 2- 1- 00 00 SI ve FL 01 20 20 49 DE AM 10 [...] 80 4- 4- 00 00 SI ve FL 01 20 20 47 DE AM 10 [...] 80 5- 6- 00 00 SI ve FL 01 20 20 47 DE AM 10 [...] 80 9- 2- 00 00 SI ve FL 01 20 20 47 DE AM 10 [...] 80 9- 4- 00 00 SI ve FL 01 20 20 47 DE AM 10 [...] 80 6- 0- 00 00 SI ve FL 01 20 20 46 DE AM 10 [...] 01 03 6. 3 00 EA Ac FL 74 -3 -[address] ti [...] 80 6- 0- 00 00 SI ve FL 01 20 20 46 DE AM 10 [...] 10 12 30 30 00 EA Ac FL 37 -1 -[address] ti [...] 80 7- 9- 00 00 SI ve FL 01 20 20 46 DE AM 10 [...] End Date Code Location Performer Type Date [facility] - [facility] 7 7 [facility] - 7 7 [facility] - 7 7 [facility] - 7 7 [facility] - 7 7 [facility] - 6 6 [facility] - 6 6 [facility] - 5 5 [facility] [place] - 4 4 [facility] [place] [address] 4 [facility]
--- OUTSIDE RECORDS SUMMARY | 2017-08-25 10:45 | External Medical Summary Rpt ---
Author Author TAYLORMARIANO Mark, [employer] Organization [employer] Address Unknown Phone Unavailable Results Choriogonadotropin [Units/volume] in Serum or Plasma Observa Value Referen Units Interpr Notes Date tion ce etation Range Choriogon NEG No No No May 09 adotropin informati informati informati 2017 8:36 on in on in on in AM [Units/vo source source source lume] in data data data Serum or Plasma Basic metabolic panel in Blood Observa Value Referen Units Interpr Notes Date tion ce etation Range Urea 7 - 18 mg/dL Normal No May 09 nitrogen informati 2016 8:36 [Mass/vol on in AM ume] in source Serum or data Plasma Calcium 8.5 - mg/dL Normal No May 09 [Mass/vol 10.1 informati 2016 8:36 ume] in on in AM Serum or source Plasma data Chloride 98 - 107 mmoL/L Normal No May 09 [Moles/vo informati 2016 8:36 lume] in on in AM Serum or source Plasma data Carbon 21.0 - mmoL/L Normal No May 09 dioxide, 32.0 informati 2016 8:36 total on in AM [Moles/vo source lume] in data Serum or Plasma Creatinin 0.55 - mg/dL Normal No May 09 e 1.02 informati 2016 8:36 [Mass/vol on in AM ume] in source Serum or data Plasma Estimated 59- ML/MIN No REFERENCE May 09 informati RANGE: 2017 8:36 glomerula on in >60 AM r source ML/MIN/1. filtratio data 73 SQUARE n rate METERSIf (GF this patient is -A merican, then multiply theresult by 1.210. Glucose 74 - 106 mg/dL Low No May 09 [Mass/vol informati 2016 8:36 ume] in on in AM Serum or source Plasma data Potassium 3.5 - 5.1 mmoL/L Normal No May 09 informati 2016 8:36 [Moles/vo on in AM lume] in source Serum or data Plasma Sodium 136 - 145 mmoL/L Normal No May 09 [Moles/vo informati 2016 8:36 lume] in on in AM Serum or source Plasma data CBC W Auto Differential panel in Blood Observa Value Referen Units Interpr Notes Date tion ce etation Range Basophils 0 - 0.2 K/MM3 Normal No May 09 informati 2016 8:36 [#/volume on in AM ] in source Blood by data Automated count Basophils 0.1 - 2.0 % Normal No May 09 /100 informati 2017 8:36 leukocyte on in AM s in source Blood by data Automated count Eosinophi 0.0 - 0.4 K/mm3 Normal No May 09 ls informati 2016 8:36 [#/volume on in AM ] in source Blood by data Automated count Eosinophi 0.1 - % Normal No May 09 ls/100 12.0 informati 2016 8:36 leukocyte on in AM s in source Blood by data Automated count Granulocy 1.8 - 7.8 K/mm3 Normal No May 09 alfonso informati 2016 8:36 [#/volume on in AM ] in source Blood by data Automated count Granulocy 37.0 - % Normal No May 09 alfonso/100 80.0 informati 2016 8:36 leukocyte on in AM s in source Blood by data Automated count Hematocri 37.0 - % Low No May 09 t [Volume 47.0 informati 2016 8:36 on in AM Fraction] source of Blood data Hemoglobi 12.2 - g/dL Low No May 09 n 16.2 informati 2016 8:36 [Mass/vol on in AM ume] in source Blood data Lymphocyt 0.7 - 4.5 K/mm3 Normal No May 09 es informati 2016 8:36 [#/volume on in AM ] in source Unspecifi data ed specimen by Automated count Lymphocyt 10 - 50.0 % Normal No May 09 es informati 2016 8:36 [#/volume on in AM ] in source Unspecifi data ed specimen by Automated count Erythrocy 27 - 31.2 pg Normal No May 09 te mean informati 2016 8:36 corpuscul on in AM ar source hemoglobi data n [Entitic mass] Erythrocy 31.8 - g/dl Normal No May 09 te mean 35.4 informati 2016 8:36 corpuscul on in AM ar source hemoglobi data n concentra tion [Mass/vol ume] by Automated count Erythrocy 82.2 - fl Normal No May 09 te mean 97.8 informati 2016 8:36 corpuscul on in AM ar volume source [Entitic data volume] by Automated count Monocytes 0.1 - 1.0 K/mm3 Normal No May 09 informati 2016 8:36 [#/volume on in AM ] in source Blood by data Automated count Monocytes 1.7 - 9.3 % Normal No May 09 /100 informati 2016 8:36 leukocyte on in AM s in source Blood by data Automated count Platelet 7.4 - fl Normal No May 09 mean 10.4 informati 2016 8:36 volume on in AM [Entitic source volume] data in Blood by Automated count Platelets 142 - 424 K/mm3 Normal No May 09 informati 2016 8:36 [#/volume on in AM ] in source Blood data Erythrocy 4.2 - 5.4 M/mm3 Low No May 09 alfonso informati 2016 8:36 [#/volume on in AM ] in source Amniotic data fluid Erythrocy 11.5 - % Normal No May 09 te 17.5 informati 2016 8:36 distribut on in AM ion width source [Entitic data volume] by Automated count Leukocyte 4.8 - K/MM3 Normal No May 09 s 10.8 informati 2016 8:36 [#/volume on in AM ] in source Blood data Follitropin [Units/volume] in Serum or Plasma Observa Value Referen Units Interpr Notes Date tion ce etation Range Follitrop . mIU/mL No Adult Mar 19 in informati Female: 2017 3:39 [Units/vo on in llicular PM lume] in source phase Serum or data 3.5 - Plasma 12.5Ovula tion phase 4.7 - 21.5Lutea l phase 1.7 - 7.7Postme nopausal 25.8 - 134.8Perf ormed at: [facility] [address] [id number] Shorer: Jose Goodwin PhD, Phone: [phone] Lutropin [Units/volume] in Serum or Plasma Observa Value Referen Units Interpr Notes Date tion ce etation Range Lutropin . mIU/mL No Adult Mar 19 [Units/vo informati Female:Fo 2017 3:39 lume] in on in llicular PM Serum or source phase Plasma data 2.4 - 12.6Ovula tion phase 14.0 - 95.6Lutea l phase 1.0 - 11.4Postm enopausal 7.7 - 58.5 Thyrotropin [Units/volume] in Serum or Plasma Observa Value Referen Units Interpr Notes Date tion ce etation Range Thyrotrop 0.358 - uIU/ml Normal No Mar 19 in 3.740 informati 2016 3:39 [Units/vo on in PM lume] in source Serum or data Plasma CBC W Auto Differential panel in Blood Observa Value Referen Units Interpr Notes Date tion ce etation Range Basophils 0 - 0.2 K/MM3 Normal No Mar 19 informati 2016 3:39 [#/volume on in PM ] in source Blood by data Automated count Basophils 0.1 - 2.0 % Normal No Mar 19 /100 informati 2016 3:39 leukocyte on in PM s in source Blood by data Automated count Eosinophi 0.0 - 0.4 K/mm3 Normal No Mar 19 ls informati 2016 3:39 [#/volume on in PM ] in source Blood by data Automated count Eosinophi 0.1 - % Normal No Mar 19 ls/100 12.0 informati 2016 3:39 leukocyte on in PM s in source Blood by data Automated count Granulocy 1.8 - 7.8 K/mm3 Normal No Mar 19 alfonso informati 2016 3:39 [#/volume on in PM ] in source Blood by data Automated count Granulocy 37.0 - % Normal No Mar 19 alfonso/100 80.0 informati 2016 3:39 leukocyte on in PM s in source Blood by data Automated count Hematocri 37.0 - % Low No Mar 19 t [Volume 47.0 informati 2016 3:39 on in PM Fraction] source of Blood data Hemoglobi 12.2 - g/dL Low No Mar 19 n 16.2 informati 2016 3:39 [Mass/vol on in PM ume] in source Blood data Lymphocyt 0.7 - 4.5 K/mm3 Normal No Mar 19 es informati 2016 3:39 [#/volume on in PM ] in source Unspecifi data ed specimen by Automated count Lymphocyt 10 - 50.0 % Normal No Mar 19 es informati 2016 3:39 [#/volume on in PM ] in source Unspecifi data ed specimen by Automated count Erythrocy 27 - 31.2 pg Normal No Mar 19 te mean informati 2016 3:39 corpuscul on in PM ar source hemoglobi data n [Entitic mass] Erythrocy 31.8 - g/dl Low No Mar 19 te mean 35.4 informati 2016 3:39 corpuscul on in PM ar source hemoglobi data n concentra tion [Mass/vol ume] by Automated count Erythrocy 82.2 - fl Normal No Mar 19 te mean 97.8 informati 2016 3:39 corpuscul on in PM ar volume source [Entitic data volume] by Automated count Monocytes 0.1 - 1.0 K/mm3 Normal No Mar 19 informati 2016 3:39 [#/volume on in PM ] in source Blood by data Automated count Monocytes 1.7 - 9.3 % Normal No Mar 19 /100 informati 2017 3:39 leukocyte on in PM s in source Blood by data Automated count Platelet 7.4 - fl Normal No Mar 19 mean 10.4 informati 2016 3:39 volume on in PM [Entitic source volume] data in Blood by Automated count Platelets 142 - 424 K/mm3 Normal No Mar 19 informati 2016 3:39 [#/volume on in PM ] in source Blood data Erythrocy 4.2 - 5.4 M/mm3 Low No Mar 19 alfonso informati 2017 3:39 [#/volume on in PM ] in source Amniotic data fluid Erythrocy 11.5 - % Normal No Mar 19 te 17.5 informati 2016 3:39 distribut on in PM ion width source [Entitic data volume] by Automated count Leukocyte 4.8 - K/MM3 Normal No Mar 19 s 10.8 informati 2016 3:39 [#/volume on in PM ] in source Blood data
--- OUTSIDE RECORDS SUMMARY | 2017-08-25 10:45 | External Medical Summary Rpt ---
[...] 7.7Postme nopausal 25.8 - 134.8Perf ormed at: [facility] [address] [id number] Research Dietitian: Jose Goodwin PhD, Phone: [phone] Lutropin [Units/volume] in Serum or Plasma [...]
--- OUTSIDE RECORDS SUMMARY | 2017-08-25 10:45 | External Medical Summary Rpt | CCD ---
Author Author , CONSTANCE Organization CONSTANCE Address Unknown Phone [email or web address] Immunization Name Date Rout CVX Reac Dose Comm Prov Is Faci e tion ent ider Refu lity Give sed n Td 02- 113 999 Hist H149 No H149 (poly 7-20 oric lt), 07 al Info P-Fr rmat ee ion - Sour ce Unsp ecif ied
--- OUTSIDE RECORDS SUMMARY | 2017-08-25 10:45 | External Medical Summary Rpt | CCD ---
Author Author , CONSTANCE Organization CONSTANCE Address Unknown Phone [email or web address] Immunization Name Date Rout CVX Reac Dose Comm Prov Is Faci e tion ent ider Refu lity Give sed n Td 02- 113 999 Hist H149 No H149 (poly 7-20 oric lt), 07 al Info P-Fr rmat ee ion - Sour ce Unsp ecif ied
--- NOTE | 2017-08-25 10:59 | Urgent Treatment Center Report ---
History of Present Issue Date/Time Seen by Provider 08/25/17 1049 Visit Reason Pt arrived:Walked Presenting Problem:ABD PAIN, VOMITING, DIARRHEA X2 DAYS Location if Accident: Onset of symptoms date/time:/ or onset unknown for:MEDICAL HX UNKNOWN Have you (or family members/close friends) recently traveled outside the [place]? N If Yes, where/when: Have you had exposure to infectious disease within the past month? TB? Other? Specify: Patient state that she has had nausea vomiting and diarrhea for a couple of days now State that she had phenergan at home and it did help with the nausea some State that she has been drinking water and tried to drink some gatoraid but it made her a little nausous States that she came in to see if there was something she could take for the stomach cramps States that she has cramping right before she has an eppisode of diarrhea ALLERGIES Coded Allergies: codeine (08/25/17) Home Medications Active Scripts AMOXICILLIN/POTASSIUM CLAV (Amox Tr-K Clv 875-125 MG Tab) 1 TAB PO BID #14 TAB Prov: 10/22/16 Reported Medications Citalopram Hydrobromide (Celexa) 40 MG PO DAILY OMEPRAZOLE MAGNESIUM (Prilosec 20MG) 40 MG PO DAILY CHOLECALCIFEROL (VITAMIN D3) (Vitamin D) 1,000 IUNITS PO DAILY History Medical History General CAD? No Angina: No NV: No Hypertension? No Hyperlipidemia? No CHF? No COPD? Yes Asthma? No Anemia? No Hernia? No Thyroid Problems? No Hypothyroidism? No CVA? No Seizures? No Diabetes? No UTI? No Stones? No GB Disease: No Nephritic Syndrome? No Asplenia? No Hepatitis? No Sickle Cell Disease? No Arthritis? No Cataracts? No Glaucoma? No MRSA? No TB? No Cancer? No Immunization HX DT/Tetanus 1-4 YRS Surgical Hx Previous Surgery?Y TUBAL EAR SURGERIES SINUS SURGERY Social History Smoking Hx Smoker: Current Every Day Smoker Tobacco: Yes Type Cigarettes Packs/day < 1 Pack Alcohol Alcohol: No Review of Systems All Other Systems Reviewed and Negative Gastrointestinal diarrhea, nausea, vomiting, other (abdominal cramping) Physical Exam Vital Signs Vital Signs Date Time Temp Pulse Resp B/P Pulse O2 O2 Flow FiO2 Ox Delivery Rate 08/25 1044 98.2 110 20 122/74 98 General Appearance normal appearance, WD/WN, no apparent distress Ear, Nose, Throat normal ENT inspection, mucous membranes moist Respiratory Status Yes: trachea midline, chest symmetrical, non tender chest. No: respiratory distress. Lung Sounds bilateral: normal breath sounds, lungs clear. Cardiovascular normal exam, regular rate/rhythm, no peripheral edema Gastrointestinal non tender, soft, no guarding, no rebound Neurologic alert, normal exam, oriented x 3 Medical Decision Making LABS/Meds/Orders Pt receiving controlled substance in ED? No Results/Orders Laboratory Tests 08/25/17 1100: Stl Aeromonas (PCR) Pending, Stl Cyclospora species Pending, Stool Rotavirus ( PCR) Pending, Stool Astrovirus (PCR) Pending, Stool Campylobacter PCR Pending, Stool Cryptosporidium PCR Pending, Stl E. histolytica PCR Pending, Stool Giardia Lamblia PCR Pending, Stl P. shigelloides PCR Pending, Stool Sapovirus (PCR) Pending, Stool Vibrio (PCR) Pending, Stl Vibrio cholerae PCR Pending, Stl Norovirus GI/GII PCR Pending, Adenovirus (PCR) Pending, C. difficile Tox (PCR) Pending, E. coli (PCR) Pending, Salmonella (PCR) Pending, Yersinia (PCR) Pending Current Medication Orders Sig/Benjamin Start time Last Medication Dose Route Stop Time Status Admin Dicyclomine HCl 10 MG ONCE ONE 08/25 1100 DC 08/25 IM 08/25 1101 1057 Dicyclomine HCl 0 .STK-MED ONE 08/25 1054 DC .ROUTE Orders Procedure Date/time Status DIARRHEA PANEL, PCR 08/25 1052 Active Progress [facility] Progress Notes 1 Comment diarrhea panel ordered Patient advised that she needed to follow up with family doctor tomorrow for results [facility] Progress Notes 2 Comment After given Bentyl Patient state that pain is much better and gone now Departure Departure Time of Disposition 1109 Disposition DC Home or Self Care(routine) Clinical Impression Primary Impression: Gastroenteritis Condition STABLE Referrals MARISOL METZ (Family): Tomorrow-Call Office For results of diarrhea panel Patient Instructions DI for Viral Gastroenteritis -- Adult, Viral Gastroenteritis Additional Instructions try very small amounts of water or suck on ice chips. diarrhea. children and infants should use products formulated for children, like oral rehydration solutions. Never give aspirin to children or teenagers with a viral illness. This can cause Abraham syndrome, a potentially life-threatening condition. Discharge Counseling Counseled pt/family regarding diagnosis, medications/RX, home care, follow up needs Prescriptions Current Visit Scripts Dicyclomine Hcl (Bentyl 10MG) 10 MG PO Q6HP PRN cramping #30 CAP at 1110
[2017-08-25] MEDS ORDERED: BENTYL10 MG PO (11:09)
[2017-08-25 11:10] LABS: AEROMONAS NOT DETECTED (NOT DETECTE); ASTROVIRUS NOT DETECTED (NOT DETECTE); CYCLOSPORA CAYETANENSIS NOT DETECTED (NOT DETECTE); E COLI O157 NOT DETECTED (NOT DETECTE); ENTEROAGGREGATIVE E COLI NOT DETECTED (NOT DETECTE); ENTEROPATHOGENIC E COLI NOT DETECTED (NOT DETECTE); ENTEROTOXIGENIC E COLI NOT DETECTED (NOT DETECTE); NOROVIRUS NOT DETECTED (NOT DETECTE); SAPOVIRUS NOT DETECTED (NOT DETECTE); SHIGA-LIKE TOXIN PROD. E COLI NOT DETECTED (NOT DETECTE); SHIGELLA/ENTEROINVASIVE E COLI NOT DETECTED (NOT DETECTE); VIBRIO CHOLERAE NOT DETECTED (NOT DETECTE)
[2017-08-25 11:15] VITALS: BP 122/74
== END 2017-08-25 11:15 | disposition home or self-care (01) ==
LOC: UTC 10:36
PROVIDERS: Nurse Practitioner
DX: A08.4 Viral intestinal infection, unspecified (principal); F17.210 Nicotine dependence, cigarettes, uncomplicated; J44.9 Chronic obstructive pulmonary disease, unspecified; Z88.6 Allergy status to analgesic agent